=== PATIENT | male | born 1955 | race Caucasian/White ===

== ENCOUNTER 2020-12-01 07:17 | Inpatient (IN) | payer BC, OTHER ==
[2020-12-01] VITALS (11 sets, daily range): BP systolic 103–118; BP diastolic 54–70
[~2020-12-01] VITALS: Ht 172.7 cm; Wt 73.6 kg
[~2020-12-01 07:17] MED LIST: ATOR20TA PO; CANA100T PO; CLOP75TA34 PO; LINA1TAB5 PO; LOP25T PO; [UNRECOGNIZED DRUG - CODE] PO
[2020-12-01] MEDS ORDERED: aspirin 81mg tab.chew PO ONE ×2 (09:15→15:40)
[2020-12-01 09:26] LABS: BASOPHILS % (AUTO) 0.5 % (0-1); EOSINOPHILS # (AUTO) 0.2 X10'3 (0-0.9); EOSINOPHILS % (AUTO) 2.4 % (0-6); HEMATOCRIT 44.4 % (42.0-52.0); HEMOGLOBIN 14.6 g/dl (14.0-17.9); LYMPHOCYTES % (AUTO) 14.7 % (21-51); MEAN CORPUSCULAR HEMOGLOBIN 31.3 PG (27.0-31.0); MEAN PLATELET VOLUME 8.7 FL (7.4-10.4); MONOCYTES # (AUTO) 0.7 X10'3 (0-0.9); MONOCYTES % (AUTO) 9.8 % (2-12); NEUTROPHILS # (AUTO) 5.1 X10'3 (1.8-7.7); NEUTROPHILS % (AUTO) 72.6 % (42-75); PLATELET COUNT 182 X10'3 (140-440); RED BLOOD COUNT 4.67 X10'6 (4.70-6.10); RED CELL DISTRIBUTION WIDTH 13.8 % (11.5-14.5); WHITE BLOOD COUNT 7.1 X10'3 (4.5-11.0)
[2020-12-01 09:46] LABS: ALANINE AMINOTRANSFERASE 24 U/L (12-78); ALBUMIN 3.9 G/DL (3.4-5.0); ALBUMIN/GLOBULIN RATIO 1.1 (1.1-1.5); ALKALINE PHOSPHATASE 66 IU/L (46-116); ANION GAP 9 (8-16); ASPARTATE AMINO TRANSFERASE 21 U/L (10-37); BILIRUBIN,TOTAL 0.8 MG/DL (0.1-1.0); BLOOD UREA NITROGEN 17 MG/DL (7-18); BUN/CREATININE RATIO 21.8 (5.4-32.0); CALCIUM 8.7 MG/DL (8.5-10.1); CHLORIDE 106 MMOL/L (99-107); CREATININE 0.78 MG/DL (0.60-1.10); GLUCOSE 132 MG/DL (70-104); POTASSIUM 4.3 MMOL/L (3.5-5.1); SODIUM 144 MMOL/L (135-145); TOTAL CARBON DIOXIDE 29.2 MMOL/L (24-32); TOTAL PROTEIN 7.3 G/DL (6.4-8.2); eGFR > 90 ML/MIN
[2020-12-01] MEDS ORDERED: heparin 25,000 UNIT/250ml bag 250 ML IV SCH (10:05)
[2020-12-01] MEDS ORDERED: heparin 10,000 units/1 ML INJ IV PRN (10:05)
[2020-12-01] MEDS ORDERED: heparin 10,000 units/1 ML INJ IV ONE ×2 (10:05→10:10)
[2020-12-01 10:33] LABS: PARTIAL THROMBOPLASTIN TIME 28 SECONDS (22-32)
[2020-12-01] MEDS ORDERED: PERFLUTREN PROTEIN-A MICROSPHR (Optison) 0.22 MG/ML 3ML VIAL IV ONE (11:00)
[2020-12-01] MEDS ORDERED: potassium Cl 40MEQ/1/2NS 520ml 520 ML IV PRN ×2 (11:00)
[2020-12-01] MEDS ORDERED: acetaminophen 325mg tablet PO PRN ×3 (11:00→15:35)
[2020-12-01] MEDS ORDERED: magnesium 4gm in 100ml NS 100 ML IV PRN (11:00)
[2020-12-01] MEDS ORDERED: potassium Cl 20 mEq SR tablet PO PRN ×2 (11:00)
[2020-12-01] MEDS ORDERED: morphine 2 MG/ML inj. syringe IV PRN (11:00)
[2020-12-01] MEDS ORDERED: magnesium 2GM in 50ml NS 50 ML IV PRN (11:00)
[2020-12-01] MEDS ORDERED: magnesium Cl slow-release 64mg tablet PO PRN (11:00)
[2020-12-01] MEDS ORDERED: ondansetron/PF 4mg/2ml inj IV PRN (11:00)
[2020-12-01] MEDS ORDERED: fentaNYL/PF 50MCG/1 ML 2ML syringe ONE (12:03)
[2020-12-01] MEDS ORDERED: LIDOcaine 1% (10mg/ml)w/preservative injection 20ml MDV ONE (12:03)
[2020-12-01] MEDS ORDERED: verapamil 2.5 mg/ml inj IV ONE (12:03)
[2020-12-01] MEDS ORDERED: heparin 1,000unit/ml 10ml vial 10 ML ONE (12:03)
[2020-12-01] MEDS ORDERED: midazolam 1 mg/ML 2ml injection ONE (12:03)
[2020-12-01] MEDS ORDERED: nitroGLYCERIN-Tridil 50MG/D5W 250 ML IV ONE (12:03)
[2020-12-01] MEDS ORDERED: iohexol 350 MG/ML 50ML vial IV ONE (12:04)
[2020-12-01] MEDS ORDERED: iohexol 350MG/ML 100ml bottle IV ONE ×2 (12:04→14:20)
[2020-12-01] MEDS ORDERED: METF-438 PO (12:33)
[2020-12-01] MEDS ORDERED: METO-395 PO (12:33)
[2020-12-01] MEDS ORDERED: EMPA25TA PO (12:33)
[2020-12-01] MEDS ORDERED: iohexol 350 MG/1 ML 200ml bottle ONE (13:14)
[2020-12-01] MEDS ORDERED: clopidogrel 300mg tablet ONE (14:39)
--- NOTE | 2020-12-01 15:08 | NUR ---
Pt arrived from lab intern, ambulated to bed with SB assist, alert and oriented x4. BLL, SRx2, CL within reach, non skid socks on. Vascular band on R wrist, no signs of bleeding or hematoma, will start release at 1630. NS @100ml/hr per md orders. Faxed med list to pharmacy, put labs in orders. First set of vitals complete BP 113/54, HR 54, R12, pain 0/10, 02 100RA, tele on.
[2020-12-01] MEDS ORDERED: magnesium hydroxide 30ml (MOM) UD suspension PO PRN (15:35)
--- NOTE | 2020-12-01 17:51 | NUR ---
Paged Dr Martinez for critical PAGER ID: [phone] MESSAGE: Melissa Lopezbrielle Pia [id number] Critical Trop 1.12, up from 0.63. Already went to clinical laboratory manager w/ interventions. Thanks Natalie [phone]
--- NOTE | 2020-12-01 18:17 | NUR ---
Problems reprioritized. Patient report given, questions answered & plan of care reviewed with OWEN Cui. Pt sitting up eating dinner. R heart cath site looks good, no hematoma or bleeding noted. All pt needs met at this time.
--- NOTE | 2020-12-01 18:17 | NUR ---
Patient in room PCU 3013. I have received report from Rachel. WEAVER and had the opportunity to ask questions and assume patient care.
[2020-12-01] MEDS: K and/or MAG REPLACEMENT MC SCH (20:00)
[2020-12-01] MEDS: docusate sod 100mg capsule PO SCH ×2 (20:00)
--- NOTE | 2020-12-01 22:00 | NUR ---
MD King paged with critical trop 12hr of 1.25 called back and notified pt wants to leave MD king stated she didnt feel comfortable discharging pt and the pt can leave AMA. PT informed and stated he would stay the night but would like to leave no later than 0700
[2020-12-02] VITALS: BP 110/61
[2020-12-02 02:00] VITALS: BP 115/59
[2020-12-02 04:00] VITALS: BP 115/59
[2020-12-02 06:00] VITALS: BP 104/57
[2020-12-02 06:11] LABS: BASOPHILS % (AUTO) 0.5 % (0-1); EOSINOPHILS # (AUTO) 0.4 X10'3 (0-0.9); EOSINOPHILS % (AUTO) 4.2 % (0-6); HEMATOCRIT 41.8 % (42.0-52.0); HEMOGLOBIN 13.8 g/dl (14.0-17.9); LYMPHOCYTES # (AUTO) 1.1 X10'3 (1.1-4.8); LYMPHOCYTES % (AUTO) 13.2 % (21-51); MEAN CORPUSCULAR HEMOGLOBIN 31.4 PG (27.0-31.0); MEAN CORPUSCULAR VOLUME 95.3 FL (78-98); MEAN PLATELET VOLUME 9.1 FL (7.4-10.4); MONOCYTES % (AUTO) 12.2 % (2-12); NEUTROPHILS # (AUTO) 5.9 X10'3 (1.8-7.7); NEUTROPHILS % (AUTO) 69.9 % (42-75); PLATELET COUNT 178 X10'3 (140-440); RED BLOOD COUNT 4.39 X10'6 (4.70-6.10); RED CELL DISTRIBUTION WIDTH 13.9 % (11.5-14.5); WHITE BLOOD COUNT 8.5 X10'3 (4.5-11.0)
[2020-12-02 06:12] LABS: ALBUMIN 3.5 G/DL (3.4-5.0); ANION GAP 7 (8-16); BLOOD UREA NITROGEN 15 MG/DL (7-18); BUN/CREATININE RATIO 20.5 (5.4-32.0); CALCIUM 8.6 MG/DL (8.5-10.1); CHLORIDE 105 MMOL/L (99-107); CHOL/HDL RATIO 2.5 (0.00-4.99); CHOLESTEROL 117 MG/DL (0-200); CREATININE 0.73 MG/DL (0.60-1.10); GLUCOSE 126 MG/DL (70-104); HDL CHOLESTEROL 46 MG/DL (35-60); LDL CHOLESTEROL 66 MG/DL (50-100); MAGNESIUM 2.2 MG/DL (1.5-2.4); SODIUM 138 MMOL/L (135-145); TOTAL CARBON DIOXIDE 26.2 MMOL/L (24-32); TRIGLYCERIDES 52 MG/DL (20-135); eGFR > 90 ML/MIN
--- NOTE | 2020-12-02 06:14 | NUR ---
Problems reprioritized. Patient report given, questions answered & plan of care reviewed with OWNE Viera.
--- NOTE | 2020-12-02 06:14 | NUR ---
Patient in room PCU 3013. I have received report from OWEN Cui and had the opportunity to ask questions and assume patient care.
--- NOTE | 2020-12-02 06:24 | NUR ---
Patient in room PCU 3013. I have received report from OWEN Cui and had the opportunity to ask questions and assume patient care.
[2020-12-02 08:00] VITALS: BP 114/71
[2020-12-02] MEDS ORDERED: aspirin 81mg tab.chew PO SCH (08:00)
[2020-12-02] MEDS: docusate sod 100mg capsule PO SCH ×2 (08:00)
[2020-12-02] MEDS ORDERED: clopidogrel 75mg tablet PO SCH (08:00)
[2020-12-02] MEDS ORDERED: metoprolol succinate 25mg (24-HOUR) SR. Tablet PO SCH (08:00)
[2020-12-02] MEDS: K and/or MAG REPLACEMENT MC SCH (08:00)
--- NOTE | 2020-12-02 08:16 | NUR ---
[id number] MESSAGE: re [id number] Pia Lu pt requesting to be discharged. Thanks. Sheila [phone]
--- NOTE | 2020-12-02 08:57 | NUR ---
Paged Araceli Youngblood, Pia Robertson [id number] Dr Martinez is asking if this pt is cardiac cleared so he can be discharged? Thank you [phone]
[2020-12-02] MEDS ORDERED: CLOP75TA34 PO (08:58)
[2020-12-02 09:43] LABS: HEMOGLOBIN A1C 7.1 % (4.5-6.2)
[2020-12-02] MEDS ORDERED: ASPI-1265 PO (10:00)
[2020-12-02] MEDS ORDERED: ATOR80TA PO (10:03)
--- NOTE | 2020-12-02 10:45 | NUR ---
[place] Medication Administration: For this medication-pass time frame, all medication were reviewed, dispensed, administered and documented per hospital policy by OWEN Sosa.
--- NOTE | 2020-12-02 10:45 | NUR ---
pt is stable for dc per md orders. All discharge instructions and questions were reviewed and answered w/ the pt. New prescriptions were scripted [facility]. PIV dc, cannula intact. tele monitor dc. belongings collected and sent with the pt. wheeled to [facility]. transported home with roxie.
--- NOTE | 2020-12-02 10:45 | NUR ---
[place] documentation: I have reviewed and agree with all interventions, assessments performed and documented by OWEN Sosa.
== END 2020-12-02 10:45 | disposition home or self-care (01) | DRG 247 ==
LOC: ER 07:18 → ED HOLD 11:07 → PCU 3S 15:08
PROVIDERS: ADMIT Internal Medicine; ATTEND Internal Medicine
PROC: 4A023N7 Measurement of Cardiac Sampling and Pressure, Left Heart, Percutaneous Approach (ICD-10-PCS; principal; 2020-12-01)
PROC: 027236Z Dilation of Coronary Artery, Three Arteries with Three Drug-eluting Intraluminal Devices, Percutaneous Approach (ICD-10-PCS; 2020-12-01)
PROC: B2111ZZ Fluoroscopy of Multiple Coronary Arteries using Low Osmolar Contrast (ICD-10-PCS; 2020-12-01)
PROC: B2151ZZ Fluoroscopy of Left Heart using Low Osmolar Contrast (ICD-10-PCS; 2020-12-01)
DX: I21.4 Non-ST elevation (NSTEMI) myocardial infarction (principal); I25.110 Atherosclerotic heart disease of native coronary artery with unstable angina pectoris; E11.9 Type 2 diabetes mellitus without complications; E78.5 Hyperlipidemia, unspecified; G47.33 Obstructive sleep apnea (adult) (pediatric); I10 Essential (primary) hypertension; N52.9 Male erectile dysfunction, unspecified; K21.9 Gastro-esophageal reflux disease without esophagitis; Z79.84 Long term (current) use of oral hypoglycemic drugs; Z83.3 Family history of diabetes mellitus; Z87.891 Personal history of nicotine dependence; Z95.5 Presence of coronary angioplasty implant and graft; Z79.02 Long term (current) use of antithrombotics/antiplatelets; Z88.0 Allergy status to penicillin; Z79.899 Other long term (current) drug therapy
CPT/HCPCS: 36415; 71045; 80048; 80053; 80061; 83036; 83735; 83880; 84484; 85025; 85347; 85610; 85730; 87081; 93005; 93306; 93458; 96365; 96376; 99152; 99153; 99291; A4620; A5120; A6258; C1725; C1751; C1769; C1874; C1894; C9600; C9601; C9607; G0378; J1644; J2001; J2250; J3010; J3490; J7030; Q9967